=== PATIENT | male | born 1945 | race Caucasian/White ===

== ENCOUNTER → 2017-04-01 | Outpatient (CLI) | payer MEDICARE, BC ==
[~2017-04-01] VITALS: Ht 167.6 cm; Wt 105.0 kg
[~2017-04-01] MED LIST: ASPIRIN E.C. 8181 MG PO; FLOMAX 0.40.4 MG/CAP PO; LOPRESSOR100 M1 PO; MASON NATURAL1200 MG PO; NEURONTIN300 M1 PO; NIACIN500 M5 PO; PRILOSEC 20MG20 MG PO; PRINIVIL20 M1 PO; SERTRALINE HYD100 MG PO; ZOCOR40 M1 PO
[2017-04-01 14:20] VITALS: BP 152/79
== END ==
LOC: AMSURD 13:38
DX: Z01.810 Encounter for preprocedural cardiovascular examination (principal); G91.9 Hydrocephalus, unspecified

== ENCOUNTER → 2017-07-24 | Outpatient (CLI) | payer MEDICARE, BC ==
[2017-04-01 14:20] VITALS: BP 152/79
== END ==
LOC: RAD 09:45
DX: K80.20 Calculus of gallbladder without cholecystitis without obstruction (principal); E66.9 Obesity, unspecified; R73.02 Impaired glucose tolerance (oral); E78.2 Mixed hyperlipidemia; I25.10 Atherosclerotic heart disease of native coronary artery without angina pectoris
CPT/HCPCS: Q9967

== ENCOUNTER → 2017-09-25 | Outpatient (CLI) | payer MEDICARE, BC ==
[2017-04-01 14:20] VITALS: BP 152/79
[2017-09-25 10:08] LABS: HEMOGLOBIN 16.6 g/dL (13.5-18.0); MEAN PLATELET VOLUME 9.5 fl (7.4-10.4); RED BLOOD COUNT 5.97 M/mm3 (4.20-5.60); RED CELL DISTRIBUTION WIDTH 14.7 % (11.5-14.5); WHITE BLOOD COUNT 7.6 K/mm3 (4.8-10.8)
[2017-09-25 10:16] LABS: BUN/CREATININE RATIO 18.7 (6.0-26.0); CALCIUM 9.4 mg/dL (8.4-10.2); POTASSIUM 4.3 mmol/L (3.6-5.0); TOTAL BILIRUBIN 1.1 mg/dL (0.2-1.3); TOTAL PROTEIN 7.1 g/dL (6.3-8.2)
== END ==
LOC: LAB 09:34
PROVIDERS: Family Medicine
DX: I10 Essential (primary) hypertension (principal); E66.9 Obesity, unspecified; F32.9 Major depressive disorder, single episode, unspecified

== ENCOUNTER → 2017-10-15 | Outpatient (CLI) | payer MEDICARE, BC ==
[2017-04-01 14:20] VITALS: BP 152/79
== END ==
LOC: RAD 09:08
DX: N20.0 Calculus of kidney (principal); K83.8 Other specified diseases of biliary tract; Z96.89 Presence of other specified functional implants
CPT/HCPCS: Q9967

== ENCOUNTER → 2017-11-11 | Outpatient (CLI) | payer MEDICARE, BC ==
[2017-04-01 14:20] VITALS: BP 152/79
== END ==
LOC: RAD 11:04
DX: R10.32 Left lower quadrant pain (principal); K57.30 Diverticulosis of large intestine without perforation or abscess without bleeding; K80.20 Calculus of gallbladder without cholecystitis without obstruction; N20.0 Calculus of kidney; Z87.442 Personal history of urinary calculi; M47.816 Spondylosis without myelopathy or radiculopathy, lumbar region

== ENCOUNTER → 2018-02-24 | Outpatient (CLI) | payer MEDICARE, BC ==
[2017-04-01 14:20] VITALS: BP 152/79
== END ==
LOC: LAB 14:54
PROVIDERS: Family Medicine
DX: K46.9 Unspecified abdominal hernia without obstruction or gangrene (principal); K83.8 Other specified diseases of biliary tract; K57.90 Diverticulosis of intestine, part unspecified, without perforation or abscess without bleeding; N28.1 Cyst of kidney, acquired; N20.0 Calculus of kidney; N32.9 Bladder disorder, unspecified; I10 Essential (primary) hypertension; R19.07 Generalized intra-abdominal and pelvic swelling, mass and lump; Z98.2 Presence of cerebrospinal fluid drainage device
CPT/HCPCS: Q9967

== ENCOUNTER → 2018-08-12 | Outpatient (CLI) | payer MEDICARE, BC ==
[2017-04-01 14:20] VITALS: BP 152/79
== END ==
LOC: LAB 15:36
DX: R30.0 Dysuria (principal); N39.0 Urinary tract infection, site not specified; R10.819 Abdominal tenderness, unspecified site; M54.5 Low back pain

== ENCOUNTER → 2018-09-28 | Outpatient (CLI) | payer MEDICARE, BC ==
[~2018-09-28] VITALS: Ht 167.6 cm; Wt 105.0 kg
[2018-09-28 11:11] LABS: EOS # 0.1 (0.04-0.40); EOS % 1.8 % (0.0-4.0); HEMATOCRIT 50.3 % (42.0-52.0); HEMOGLOBIN 16.9 g/dL (13.5-18.0); LYMPH# 1.9 (1.50-4.00); MEAN CELL VOLUME 85 fl (78-100); MEAN CORPUSCULAR HEMOGLOBIN 29 pg (27-31); MEAN CORPUSCULAR HGB CONC 34 g/dL (33-37); MEAN PLATELET VOLUME 9.1 fl (7.4-10.4); MONO # 0.5 (0.20-0.80); NEU # 4.7 (1.40-6.50); PLATELET COUNT 225 K/mm3 (130-400); RED BLOOD COUNT 5.94 M/mm3 (4.20-5.60); RED CELL DISTRIBUTION WIDTH 14.3 % (11.5-14.5); WHITE BLOOD COUNT 7.3 K/mm3 (4.8-10.8)
[2018-09-28 11:26] VITALS: BP 142/85
[2018-09-28 11:54] LABS: ALBUMIN 4.3 g/dL (3.5-5.0); CALCIUM 9.7 mg/dL (8.4-10.2); POTASSIUM 4.2 mmol/L (3.6-5.0); TOTAL BILIRUBIN 1.1 mg/dL (0.2-1.3); TOTAL PROTEIN 6.9 g/dL (6.3-8.2)
== END ==
LOC: LAB 11:00 → AMSURD 11:00
PROVIDERS: Nurse Anesthetist, Certified Registered
DX: Z01.818 Encounter for other preprocedural examination (principal)

== ENCOUNTER → 2019-06-07 | Outpatient (CLI) | payer MEDICARE, BC ==
[2018-09-28 11:26] VITALS: BP 142/85
== END ==
LOC: RAD 10:56
DX: K43.2 Incisional hernia without obstruction or gangrene (principal); N20.0 Calculus of kidney; M43.06 Spondylolysis, lumbar region; K57.90 Diverticulosis of intestine, part unspecified, without perforation or abscess without bleeding; K80.80 Other cholelithiasis without obstruction

== ENCOUNTER → 2019-09-22 | Outpatient (CLI) | payer MEDICARE, BC ==
[2018-09-28 11:26] VITALS: BP 142/85
[2019-09-22 10:02] LABS: HEMATOCRIT 49.4 % (42.0-52.0); HEMOGLOBIN 16.4 g/dL (13.5-18.0); MEAN CELL VOLUME 82 fl (78-100); MEAN CORPUSCULAR HEMOGLOBIN 27 pg (27-31); MEAN CORPUSCULAR HGB CONC 33 g/dL (33-37); MEAN PLATELET VOLUME 8.9 fl (7.4-10.4); PLATELET COUNT 223 K/mm3 (130-400); RED CELL DISTRIBUTION WIDTH 14.2 % (11.5-14.5); WHITE BLOOD COUNT 9.1 K/mm3 (4.8-10.8)
[2019-09-22 10:41] LABS: ALBUMIN 4.1 g/dL (3.4-4.8); POTASSIUM 4.3 mmol/L (3.5-5.1)
[2019-09-22 10:42] LABS: CALCIUM 9.6 mg/dL (8.3-10.5)
[2019-09-22 10:46] LABS: TOTAL BILIRUBIN 0.9 mg/dL (0.2-1.2)
[2019-09-22 11:10] LABS: LYMPHOCYTE 22 % (20-51); MONOCYTE 5 % (3-10); NEUTROPHILS 63 % (42-75)
== END ==
LOC: LAB 09:45
PROVIDERS: Family Medicine
DX: Z00.00 Encounter for general adult medical examination without abnormal findings (principal); Z12.5 Encounter for screening for malignant neoplasm of prostate; E78.5 Hyperlipidemia, unspecified

== ENCOUNTER → 2019-11-09 | Outpatient (CLI) | payer MEDICARE, BC ==
[2018-09-28 11:26] VITALS: BP 142/85
== END ==
LOC: RAD 15:08
DX: M19.012 Primary osteoarthritis, left shoulder (principal); W19.XXXA Unspecified fall, initial encounter

== ENCOUNTER → 2020-05-05 | Outpatient (CLI) | payer MEDICARE, BC ==
[2018-09-28 11:26] VITALS: BP 142/85
== END ==
LOC: RAD 13:45
DX: I87.2 Venous insufficiency (chronic) (peripheral) (principal)

== ENCOUNTER → 2020-05-11 | Outpatient (CLI) | payer MEDICARE, BC ==
[2018-09-28 11:26] VITALS: BP 142/85
[2020-05-11 08:52] LABS: HEMATOCRIT 49.6 % (42.0-52.0); HEMOGLOBIN 16.5 g/dL (13.5-18.0); MEAN CELL VOLUME 85 fl (78-100); MEAN CORPUSCULAR HEMOGLOBIN 28 pg (27-31); MEAN CORPUSCULAR HGB CONC 33 g/dL (33-37); MEAN PLATELET VOLUME 9.3 fl (7.4-10.4); PLATELET COUNT 200 K/mm3 (130-400); RED BLOOD COUNT 5.84 M/mm3 (4.20-5.60); RED CELL DISTRIBUTION WIDTH 14.2 % (11.5-14.5); WHITE BLOOD COUNT 7.7 K/mm3 (4.8-10.8)
[2020-05-11 08:56] LABS: ALBUMIN 4.2 g/dL (3.4-4.8); POTASSIUM 4.1 mmol/L (3.5-5.1)
[2020-05-11 08:57] LABS: CALCIUM 9.2 mg/dL (8.3-10.5)
[2020-05-11 08:59] LABS: TOTAL PROTEIN 7.2 g/dL (6.2-8.1)
[2020-05-11 09:01] LABS: TOTAL BILIRUBIN 1.4 mg/dL (0.2-1.2)
[2020-05-11 09:05] LABS: MAGNESIUM 1.83 mg/dL (1.60-2.60)
[2020-05-11 09:25] LABS: LYMPHOCYTE 17 % (20-51); MONOCYTE 11 % (3-10); NEUTROPHILS 60 % (42-75)
== END ==
LOC: LAB 08:15
DX: R60.9 Edema, unspecified (principal); R06.00 Dyspnea, unspecified

== ENCOUNTER → 2020-06-02 | Outpatient (CLI) | payer MEDICARE, BC ==
[2018-09-28 11:26] VITALS: BP 142/85
== END ==
LOC: RAD 15:28
DX: R06.00 Dyspnea, unspecified (principal); Z95.1 Presence of aortocoronary bypass graft; Z98.2 Presence of cerebrospinal fluid drainage device

== ENCOUNTER → 2020-07-12 | Day surgery (SDC) | payer MEDICARE, BC ==
[2018-09-28 11:26] VITALS: BP 142/85
== END ==
LOC: MSO 12:36
DX: H25.812 Combined forms of age-related cataract, left eye (principal); M19.90 Unspecified osteoarthritis, unspecified site; I11.0 Hypertensive heart disease with heart failure; I50.9 Heart failure, unspecified; E78.00 Pure hypercholesterolemia, unspecified; G43.909 Migraine, unspecified, not intractable, without status migrainosus; G47.33 Obstructive sleep apnea (adult) (pediatric); I25.10 Atherosclerotic heart disease of native coronary artery without angina pectoris; K21.9 Gastro-esophageal reflux disease without esophagitis; F32.9 Major depressive disorder, single episode, unspecified; Z96.651 Presence of right artificial knee joint; Z79.82 Long term (current) use of aspirin; Z79.02 Long term (current) use of antithrombotics/antiplatelets; Z88.5 Allergy status to narcotic agent; Z79.52 Long term (current) use of systemic steroids; Z95.1 Presence of aortocoronary bypass graft
CPT/HCPCS: 00142; J0171; J2250; V2632

== ENCOUNTER → 2020-08-16 | Day surgery (SDC) | payer MEDICARE, BC ==
[2018-09-28 11:26] VITALS: BP 142/85
== END ==
LOC: MSO 07:23
DX: H25.811 Combined forms of age-related cataract, right eye (principal); M19.90 Unspecified osteoarthritis, unspecified site; I11.0 Hypertensive heart disease with heart failure; I50.9 Heart failure, unspecified; G43.909 Migraine, unspecified, not intractable, without status migrainosus; E78.00 Pure hypercholesterolemia, unspecified; I25.10 Atherosclerotic heart disease of native coronary artery without angina pectoris; G47.33 Obstructive sleep apnea (adult) (pediatric); K21.9 Gastro-esophageal reflux disease without esophagitis; Z87.891 Personal history of nicotine dependence; Z96.651 Presence of right artificial knee joint; Z79.82 Long term (current) use of aspirin; Z79.02 Long term (current) use of antithrombotics/antiplatelets; Z88.5 Allergy status to narcotic agent
CPT/HCPCS: 00142; J0171; J2250; V2632

== ENCOUNTER → 2020-09-05 | Outpatient (CLI) | payer MEDICARE, BC ==
[2018-09-28 11:26] VITALS: BP 142/85
== END ==
LOC: RAD 09:14
DX: M47.812 Spondylosis without myelopathy or radiculopathy, cervical region (principal); M48.02 Spinal stenosis, cervical region; G93.0 Cerebral cysts; G31.9 Degenerative disease of nervous system, unspecified; G93.89 Other specified disorders of brain; Z98.890 Other specified postprocedural states; Z98.2 Presence of cerebrospinal fluid drainage device

== ENCOUNTER 2020-09-13 15:24 | Emergency (ER) | payer MEDICARE, BC ==
[~2020-09-13] VITALS: Ht 154.9 cm; Wt 79.5 kg
[2020-09-13 16:08] LABS: BASO # 0.1 (0.02-0.10); HEMATOCRIT 49.3 % (42.0-52.0); HEMOGLOBIN 16.6 g/dL (13.5-18.0); LYMPH# 1.8 (1.50-4.00); MEAN CELL VOLUME 84 fl (78-100); MEAN CORPUSCULAR HEMOGLOBIN 28 pg (27-31); MEAN CORPUSCULAR HGB CONC 34 g/dL (33-37); MONO # 1.1 (0.20-0.80); NEU # 6.6 (1.40-6.50); PLATELET COUNT 227 K/mm3 (130-400); RED BLOOD COUNT 5.89 M/mm3 (4.20-5.60); RED CELL DISTRIBUTION WIDTH 14.1 % (11.5-14.5); WHITE BLOOD COUNT 10.2 K/mm3 (4.8-10.8)
[2020-09-13 16:09] LABS: EOS # 0.7 (0.04-0.40); EOS % 6.8 % (0.0-4.0)
[2020-09-13 16:16] LABS: ALBUMIN 3.9 g/dL (3.4-4.8); POTASSIUM 4.3 mmol/L (3.5-5.1)
[2020-09-13 16:18] LABS: CALCIUM 9.2 mg/dL (8.3-10.5)
[2020-09-13 16:19] LABS: TOTAL PROTEIN 6.9 g/dL (6.2-8.1)
[2020-09-13 16:21] LABS: TOTAL BILIRUBIN 1.1 mg/dL (0.2-1.2)
[2020-09-13 16:30] VITALS: BP 159/77
[2020-09-13 16:33] LABS: URINE WBC 0 /hpf (0-3)
[2020-09-13 16:42] LABS: URINE APPEARANCE CLEAR; URINE BILIRUBIN NEGATIVE (NEGATIVE); URINE BLOOD NEGATIVE (NEGATIVE); URINE COLOR YELLOW; URINE GLUCOSE NEGATIVE (NEGATIVE); URINE KETONE NEGATIVE (NEGATIVE); URINE LEUKOCYTE ESTERASE NEGATIVE (NEGATIVE); URINE NITRATE NEGATIVE (NEGATIVE); URINE PROTEIN(semi-quant) TRACE mg/dL (NEGATIVE); URINE UROBILINOGEN NORMAL (NORMAL)
== END 2020-09-13 18:37 | disposition home or self-care (01) ==
LOC: ED 15:24
PROVIDERS: Physician Assistant
DX: K40.90 Unilateral inguinal hernia, without obstruction or gangrene, not specified as recurrent (principal); I25.10 Atherosclerotic heart disease of native coronary artery without angina pectoris; I25.2 Old myocardial infarction; K21.9 Gastro-esophageal reflux disease without esophagitis; Z95.1 Presence of aortocoronary bypass graft; Z86.79 Personal history of other diseases of the circulatory system; Z88.6 Allergy status to analgesic agent; Z79.02 Long term (current) use of antithrombotics/antiplatelets; Z79.82 Long term (current) use of aspirin; Z79.899 Other long term (current) drug therapy

== ENCOUNTER → 2021-01-12 | Outpatient (CLI) | payer MEDICARE, BC | LOC: RAD 13:55 | DX: M16.11 Unilateral primary osteoarthritis, right hip (principal); R10.31 Right lower quadrant pain ==

== ENCOUNTER → 2021-04-25 | Outpatient (CLI) | payer MEDICARE, BC ==
[2021-04-25 10:04] LABS: POTASSIUM 4.3 mmol/L (3.5-5.1); SODIUM 136 mmol/L (136-145)
[2021-04-25 10:05] LABS: ALBUMIN 4.1 g/dL (3.4-4.8)
[2021-04-25 10:06] LABS: CALCIUM 9.3 mg/dL (8.3-10.5)
[2021-04-25 10:07] LABS: GLUCOSE 107 mg/dL (75-110); TOTAL PROTEIN 7.2 g/dL (6.2-8.1)
[2021-04-25 10:08] LABS: CARBON DIOXIDE 26 mmol/L (23-31)
[2021-04-25 10:09] LABS: TOTAL BILIRUBIN 1.5 mg/dL (0.2-1.2)
[2021-04-25 10:12] LABS: AST-SGOT 16 U/L (5-34)
[2021-04-25 10:14] LABS: MAGNESIUM 1.85 mg/dL (1.60-2.60)
[2021-04-25 10:28] LABS: ALT/SGPT < 6 U/L (0-55)
== END ==
LOC: LAB 09:18
PROVIDERS: Internal Medicine Adult Congenital Heart Disease
DX: I10 Essential (primary) hypertension (principal)

== ENCOUNTER → 2021-07-05 | Outpatient (CLI) | payer MEDICARE, BC | LOC: LAB 11:38 | DX: R35.1 Nocturia (principal) ==

== ENCOUNTER → 2021-08-25 | Outpatient (CLI) | payer MEDICARE, BC | LOC: RAD 14:03 | DX: M19.041 Primary osteoarthritis, right hand (principal); M19.031 Primary osteoarthritis, right wrist; S69.91XA Unspecified injury of right wrist, hand and finger(s), initial encounter ==

== ENCOUNTER 2021-08-28 13:04 | Outpatient (RCR) | payer MEDICARE, BC | END 2021-09-06 17:00 | disposition home or self-care (01) | LOC: PT 13:04 | DX: R26.9 Unspecified abnormalities of gait and mobility (principal) ==

== ENCOUNTER → 2021-08-28 | Outpatient (CLI) | payer MEDICARE, BC | LOC: RAD 13:24 | DX: Z98.2 Presence of cerebrospinal fluid drainage device (principal) ==

== ENCOUNTER 2021-10-29 13:13 | Emergency (ER) | payer MEDICARE, BC ==
[~2021-10-29] VITALS: Ht 167.6 cm; Wt 94.1 kg
[2021-10-29 13:48] LABS: BASO # 0.03 K/mm3 (0.02-0.10); EOS # 0.04 K/mm3 (0.04-0.40); EOS % 0.3 % (0.0-4.0); HEMATOCRIT 49.4 % (42.0-52.0); HEMOGLOBIN 16.6 g/dL (13.5-18.0); LYMPH# 1.19 K/mm3 (1.50-4.00); MEAN CELL VOLUME 83 fl (78-100); MEAN CORPUSCULAR HEMOGLOBIN 28 pg (27-31); MEAN CORPUSCULAR HGB CONC 34 g/dL (33-37); MEAN PLATELET VOLUME 8.7 fl (7.4-10.4); MONO # 0.48 K/mm3 (0.20-0.80); NEU # 10.24 K/mm3 (1.40-6.50); PLATELET COUNT 230 K/mm3 (130-400); RED BLOOD COUNT 5.92 M/mm3 (4.20-5.60); RED CELL DISTRIBUTION WIDTH 13.1 % (11.5-14.5)
[2021-10-29 13:57] LABS: POTASSIUM 4.1 mmol/L (3.5-5.1); SODIUM 133 mmol/L (136-145)
[2021-10-29 13:58] LABS: CALCIUM 9.7 mg/dL (8.3-10.5)
[2021-10-29 13:59] LABS: GLUCOSE 141 mg/dL (75-110); TOTAL PROTEIN 7.3 g/dL (6.2-8.1)
[2021-10-29 14:01] LABS: CARBON DIOXIDE 20 mmol/L (23-31); TOTAL BILIRUBIN 0.9 mg/dL (0.2-1.2)
[2021-10-29 14:05] LABS: AST-SGOT 17 U/L (5-34)
[2021-10-29 14:06] LABS: ALT/SGPT 14 U/L (0-55)
[2021-10-29 14:19] LABS: TROPONIN-I < 0.030 ng/mL (<0.030)
[2021-10-29] MEDS ORDERED: AUGMENTIN 875-1 EAC1 PO (14:50)
[2021-10-29 16:37] LABS: URINE APPEARANCE CLEAR; URINE BILIRUBIN NEGATIVE (NEGATIVE); URINE BLOOD NEGATIVE (NEGATIVE); URINE COLOR YELLOW; URINE GLUCOSE NEGATIVE (NEGATIVE); URINE KETONE NEGATIVE (NEGATIVE); URINE LEUKOCYTE ESTERASE NEGATIVE (NEGATIVE); URINE NITRATE NEGATIVE (NEGATIVE); URINE PROTEIN(semi-quant) TRACE (NEGATIVE); URINE UROBILINOGEN NORMAL (NORMAL); URINE WBC 0-1 /hpf (0-3)
[2021-10-29 17:45] VITALS: BP 177/99
== END 2021-10-29 17:45 | disposition home or self-care (01) ==
LOC: ED 13:13
PROVIDERS: Physician Assistant
DX: J01.80 Other acute sinusitis (principal); B96.89 Other specified bacterial agents as the cause of diseases classified elsewhere; R53.81 Other malaise; F03.90 Unspecified dementia, unspecified severity, without behavioral disturbance, psychotic disturbance, mood disturbance, and anxiety; I25.10 Atherosclerotic heart disease of native coronary artery without angina pectoris; I10 Essential (primary) hypertension; E78.5 Hyperlipidemia, unspecified; Z79.899 Other long term (current) drug therapy; Z79.82 Long term (current) use of aspirin; Z20.822 Contact with and (suspected) exposure to COVID-19; W19.XXXA Unspecified fall, initial encounter; Y92.009 Unspecified place in unspecified non-institutional (private) residence as the place of occurrence of the external cause

== ENCOUNTER 2021-10-31 13:46 | Emergency (ER) | payer MEDICARE, BC ==
[~2021-10-31] VITALS: Ht 167.6 cm; Wt 94.1 kg
[~2021-10-31 13:46] MED LIST changes: +AUGMENTIN 875-1 EAC1 PO
[2021-10-31 15:08] VITALS: BP 121/68
--- NOTE | 2021-11-01 09:33 | NUR ---
Faxed ER notes to [facility] for continued care
== END 2021-10-31 15:08 | disposition home or self-care (01) ==
LOC: ED 13:46
DX: I10 Essential (primary) hypertension (principal); I25.10 Atherosclerotic heart disease of native coronary artery without angina pectoris; E78.5 Hyperlipidemia, unspecified; Z95.1 Presence of aortocoronary bypass graft; Z79.82 Long term (current) use of aspirin; Z79.899 Other long term (current) drug therapy

== ENCOUNTER → 2022-01-30 | Outpatient (CLI) | payer MEDICARE, BC | LOC: RAD 09:44 | DX: M51.36 Other intervertebral disc degeneration, lumbar region (principal); M41.86 Other forms of scoliosis, lumbar region; M48.56XA Collapsed vertebra, not elsewhere classified, lumbar region, initial encounter for fracture ==

== ENCOUNTER 2022-06-05 11:43 | Emergency (ER) | payer MEDICARE, BC ==
[~2022-06-05] VITALS: Ht 172.7 cm; Wt 94.1 kg
[2022-06-05] MEDS ORDERED: LOPRESSOR 550 MG/TAB PO (12:05)
[2022-06-05] MEDS ORDERED: CARBIDOPA/LEVODOPA PO (12:06)
[2022-06-05] MEDS ORDERED: MELOXICAM15 MG PO (12:06)
[2022-06-05] MEDS ORDERED: GEMTESA75 MG PO (12:06)
[2022-06-05] MEDS ORDERED: ATORVASTATIN CA80 MG PO (12:06)
[2022-06-05 12:24] LABS: BASO # 0.03 K/mm3 (0.02-0.10); EOS # 0.02 K/mm3 (0.04-0.40); EOS % 0.2 % (0.0-4.0); HEMATOCRIT 46.9 % (42.0-52.0); HEMOGLOBIN 15.9 g/dL (13.5-18.0); MEAN CELL VOLUME 83 fl (78-100); MEAN CORPUSCULAR HEMOGLOBIN 28 pg (27-31); MEAN CORPUSCULAR HGB CONC 34 g/dL (33-37); MONO # 1.05 K/mm3 (0.20-0.80); NEU # 7.91 K/mm3 (1.40-6.50); PLATELET COUNT 195 K/mm3 (130-400); RED BLOOD COUNT 5.64 M/mm3 (4.20-5.60); RED CELL DISTRIBUTION WIDTH 13.5 % (11.5-14.5); WHITE BLOOD COUNT 10.9 K/mm3 (4.8-10.8)
[2022-06-05 12:34] LABS: ALBUMIN 3.6 g/dL (3.4-4.8); SODIUM 133 mmol/L (136-145)
[2022-06-05 12:36] LABS: GLUCOSE 125 mg/dL (75-110)
[2022-06-05 12:37] LABS: TOTAL PROTEIN 6.3 g/dL (6.2-8.1)
[2022-06-05 12:38] LABS: CARBON DIOXIDE 22 mmol/L (23-31); TOTAL BILIRUBIN 1.9 mg/dL (0.2-1.2)
[2022-06-05 12:42] LABS: AST-SGOT 12 U/L (5-34)
[2022-06-05 12:54] LABS: ALT/SGPT < 6 U/L (0-55)
[2022-06-05 13:20] LABS: URINE APPEARANCE CLOUDY; URINE BILIRUBIN NEGATIVE (NEGATIVE); URINE BLOOD NEGATIVE (NEGATIVE); URINE COLOR DARK YELLOW; URINE GLUCOSE NEGATIVE (NEGATIVE); URINE KETONE NEGATIVE (NEGATIVE); URINE LEUKOCYTE ESTERASE NEGATIVE (NEGATIVE); URINE NITRATE NEGATIVE (NEGATIVE); URINE PROTEIN(semi-quant) 1+ (NEGATIVE); URINE UROBILINOGEN NORMAL (NORMAL)
[2022-06-05 13:21] LABS: URINE MUCUS PRESENT (NOT PRESENT)
[2022-06-05 14:27] VITALS: BP 150/78
== END 2022-06-05 14:15 | disposition home or self-care (01) ==
LOC: ED 11:43
PROVIDERS: Physician Assistant
DX: E80.7 Disorder of bilirubin metabolism, unspecified (principal); F03.90 Unspecified dementia, unspecified severity, without behavioral disturbance, psychotic disturbance, mood disturbance, and anxiety; E66.9 Obesity, unspecified; Z87.891 Personal history of nicotine dependence

== ENCOUNTER 2022-06-14 12:29 | Inpatient (IN) | payer MEDICARE, BC ==
[~2022-06-14] VITALS: Ht 167.6 cm; Wt 91.0 kg
[~2022-06-14 12:29] MED LIST changes: +ATORVASTATIN CA80 MG PO; +CARBIDOPA/LEVODOPA PO; +GEMTESA75 MG PO; +LOPRESSOR 550 MG/TAB PO; +MELOXICAM15 MG PO
[2022-06-14 13:28] LABS: EOS # 0.38 K/mm3 (0.04-0.40); EOS % 4.2 % (0.0-4.0); HEMATOCRIT 49.3 % (42.0-52.0); HEMOGLOBIN 16.6 g/dL (13.5-18.0); LYMPH# 2.21 K/mm3 (1.50-4.00); MEAN CELL VOLUME 83 fl (78-100); MEAN CORPUSCULAR HEMOGLOBIN 28 pg (27-31); MEAN CORPUSCULAR HGB CONC 34 g/dL (33-37); MEAN PLATELET VOLUME 8.7 fl (7.4-10.4); MONO # 0.78 K/mm3 (0.20-0.80); NEU # 5.59 K/mm3 (1.40-6.50); PLATELET COUNT 252 K/mm3 (130-400); RED BLOOD COUNT 5.92 M/mm3 (4.20-5.60); RED CELL DISTRIBUTION WIDTH 13.5 % (11.5-14.5); WHITE BLOOD COUNT 9.1 K/mm3 (4.8-10.8)
[2022-06-14 13:45] LABS: PROTHROMBIN TIME 10.2 SECONDS (9.0-12.0)
[2022-06-14 14:00] VITALS: BP 152/82
[2022-06-14 16:06] LABS: ALBUMIN 3.6 g/dL (3.4-4.8)
[2022-06-14 16:07] LABS: POTASSIUM 4.4 mmol/L (3.5-5.1); SODIUM 134 mmol/L (136-145)
[2022-06-14 16:08] LABS: CALCIUM 9.2 mg/dL (8.3-10.5)
[2022-06-14 16:09] LABS: TOTAL PROTEIN 6.5 g/dL (6.2-8.1)
[2022-06-14 16:10] LABS: CARBON DIOXIDE 22 mmol/L (23-31)
[2022-06-14 16:11] LABS: TOTAL BILIRUBIN 1.3 mg/dL (0.2-1.2)
[2022-06-14 16:14] LABS: AST-SGOT 15 U/L (5-34)
[2022-06-14 16:15] LABS: ALT/SGPT 6 U/L (0-55)
[2022-06-14 16:16] LABS: LIPASE 25 U/L (8-78)
[2022-06-14 16:19] LABS: TROPONIN-I < 0.030 ng/mL (<0.030)
[2022-06-14 16:38] LABS: URINE APPEARANCE CLEAR; URINE BILIRUBIN NEGATIVE (NEGATIVE); URINE BLOOD NEGATIVE (NEGATIVE); URINE COLOR YELLOW; URINE GLUCOSE NEGATIVE (NEGATIVE); URINE KETONE NEGATIVE (NEGATIVE); URINE LEUKOCYTE ESTERASE NEGATIVE (NEGATIVE); URINE MUCUS PRESENT (NOT PRESENT); URINE NITRATE NEGATIVE (NEGATIVE); URINE PROTEIN(semi-quant) TRACE (NEGATIVE); URINE UROBILINOGEN NORMAL (NORMAL); URINE WBC 0-1 /hpf (0-3)
[2022-06-14 17:26] LABS: GLUCOSE 115 mg/dL (75-110)
[2022-06-14] MEDS ORDERED: COZAAR25 M1 PO (17:53)
[2022-06-14 17:57] VITALS: BP 191/93
[2022-06-14] MEDS ORDERED: NIACIN500 M5 PO (17:58)
[2022-06-14] MEDS ORDERED: TOPAMAX50 M1 PO (18:01)
[2022-06-14] MEDS ORDERED: NITROSTAT0.4 M1 SL (18:01)
[2022-06-14 18:26] VITALS: BP 174/76
[2022-06-14 21:35] VITALS: BP 162/75
[2022-06-15 00:49] LABS: HEPATITIS C ANTIBODY Negative (Negative)
[2022-06-15 02:08] VITALS: BP 167/89
[2022-06-15 06:10] VITALS: BP 179/84
[2022-06-15 09:23] VITALS: BP 163/99
[2022-06-15 13:21] VITALS: BP 143/85
[2022-06-15 17:02] VITALS: BP 196/89
[2022-06-15 21:41] VITALS: BP 170/80
[2022-06-16 05:43] VITALS: BP 164/69
[2022-06-16 08:24] LABS: HEMATOCRIT 48.7 % (42.0-52.0); HEMOGLOBIN 16.2 g/dL (13.5-18.0); MEAN PLATELET VOLUME 8.7 fl (7.4-10.4); RED BLOOD COUNT 5.84 M/mm3 (4.20-5.60); RED CELL DISTRIBUTION WIDTH 13.4 % (11.5-14.5); WHITE BLOOD COUNT 7.7 K/mm3 (4.8-10.8)
[2022-06-16 08:37] LABS: TOTAL BILIRUBIN 1.4 mg/dL (0.2-1.2)
[2022-06-16 10:15] VITALS: BP 144/76
[2022-06-16 12:34] LABS: URINE APPEARANCE CLEAR; URINE BILIRUBIN NEGATIVE (NEGATIVE); URINE BLOOD NEGATIVE (NEGATIVE); URINE COLOR YELLOW; URINE GLUCOSE NEGATIVE (NEGATIVE); URINE KETONE NEGATIVE (NEGATIVE); URINE LEUKOCYTE ESTERASE NEGATIVE (NEGATIVE); URINE NITRATE NEGATIVE (NEGATIVE); URINE PROTEIN(semi-quant) NEGATIVE (NEGATIVE); URINE UROBILINOGEN 1 mg/dL (NORMAL); URINE WBC 0-1 /hpf (0-3)
[2022-06-16] MEDS ORDERED: HEALTHYLAX17 GM/Dose PO (14:18)
[2022-06-16 14:21] VITALS: BP 149/80
[2022-06-16] MEDS ORDERED: NEURONTIN300 MG/CAP PO (15:23)
== END 2022-06-16 15:49 | disposition home health service (06) | DRG 948 ==
LOC: MED/SURG 12:29
PROVIDERS: Family Medicine; ADMIT Family Medicine
DX: R41.82 Altered mental status, unspecified (principal); N40.0 Benign prostatic hyperplasia without lower urinary tract symptoms; I25.10 Atherosclerotic heart disease of native coronary artery without angina pectoris; K21.9 Gastro-esophageal reflux disease without esophagitis; I10 Essential (primary) hypertension; M19.90 Unspecified osteoarthritis, unspecified site; G47.33 Obstructive sleep apnea (adult) (pediatric); E80.6 Other disorders of bilirubin metabolism; R00.1 Bradycardia, unspecified; K22.70 Barrett's esophagus without dysplasia; R73.9 Hyperglycemia, unspecified; G62.9 Polyneuropathy, unspecified; E78.5 Hyperlipidemia, unspecified; R26.9 Unspecified abnormalities of gait and mobility; R53.1 Weakness; Z79.82 Long term (current) use of aspirin; Z91.81 History of falling; Z88.5 Allergy status to narcotic agent
CPT/HCPCS: J1650; J7030; Q9967

== ENCOUNTER → 2022-07-03 | Outpatient (CLI) | payer MEDICARE, BC ==
[~2022-07-03] MED LIST changes: +COZAAR25 M1 PO; +HEALTHYLAX17 GM/Dose PO; +NEURONTIN300 MG/CAP PO; +NITROSTAT0.4 M1 SL; +TOPAMAX50 M1 PO
[2022-07-03 16:44] LABS: BASO # 0.05 K/mm3 (0.02-0.10); EOS % 4.3 % (0.0-4.0); HEMATOCRIT 52.1 % (42.0-52.0); HEMOGLOBIN 17.3 g/dL (13.5-18.0); LYMPH# 2.26 K/mm3 (1.50-4.00); MEAN CELL VOLUME 85 fl (78-100); MEAN CORPUSCULAR HEMOGLOBIN 28 pg (27-31); MEAN CORPUSCULAR HGB CONC 33 g/dL (33-37); MONO # 0.91 K/mm3 (0.20-0.80); NEU # 5.63 K/mm3 (1.40-6.50); PLATELET COUNT 225 K/mm3 (130-400); RED BLOOD COUNT 6.14 M/mm3 (4.20-5.60); RED CELL DISTRIBUTION WIDTH 14.4 % (11.5-14.5); WHITE BLOOD COUNT 9.3 K/mm3 (4.8-10.8)
[2022-07-03 16:55] LABS: POTASSIUM 4.2 mmol/L (3.5-5.1)
[2022-07-03 16:57] LABS: CALCIUM 9.4 mg/dL (8.3-10.5)
[2022-07-03 16:58] LABS: TOTAL PROTEIN 7.1 g/dL (6.2-8.1)
== END ==
LOC: LAB 16:29
PROVIDERS: Family Medicine
DX: I25.10 Atherosclerotic heart disease of native coronary artery without angina pectoris (principal); N40.1 Benign prostatic hyperplasia with lower urinary tract symptoms; K21.9 Gastro-esophageal reflux disease without esophagitis; F43.21 Adjustment disorder with depressed mood; L57.0 Actinic keratosis; M15.0 Primary generalized (osteo)arthritis; I10 Essential (primary) hypertension; R41.89 Other symptoms and signs involving cognitive functions and awareness; E78.2 Mixed hyperlipidemia; E66.9 Obesity, unspecified; G47.33 Obstructive sleep apnea (adult) (pediatric); G64 Other disorders of peripheral nervous system; R73.03 Prediabetes

== ENCOUNTER 2022-08-12 08:48 | Emergency (ER) | payer MEDICARE, BC ==
[2022-08-12 09:26] LABS: BASO # 0.01 K/mm3 (0.02-0.10); EOS # 0.35 K/mm3 (0.04-0.40); EOS % 3.9 % (0.0-4.0); HEMATOCRIT 50.2 % (42.0-52.0); LYMPH# 1.46 K/mm3 (1.50-4.00); MEAN CELL VOLUME 83 fl (78-100); MEAN CORPUSCULAR HEMOGLOBIN 28 pg (27-31); MEAN CORPUSCULAR HGB CONC 34 g/dL (33-37); MEAN PLATELET VOLUME 9.5 fl (7.4-10.4); MONO # 1.14 K/mm3 (0.20-0.80); NEU # 6.06 K/mm3 (1.40-6.50); PLATELET COUNT 133 K/mm3 (130-400); RED BLOOD COUNT 6.07 M/mm3 (4.20-5.60); RED CELL DISTRIBUTION WIDTH 15.1 % (11.5-14.5); WHITE BLOOD COUNT 9.1 K/mm3 (4.8-10.8)
[2022-08-12 09:30] LABS: ALBUMIN 3.6 g/dL (3.4-4.8)
[2022-08-12 09:31] LABS: POTASSIUM 3.9 mmol/L (3.5-5.1)
[2022-08-12 09:33] LABS: TOTAL PROTEIN 6.4 g/dL (6.2-8.1)
[2022-08-12 09:35] LABS: TOTAL BILIRUBIN 2.3 mg/dL (0.2-1.2)
[2022-08-12] MEDS ORDERED: LASIX20 M1 PO (09:51)
[2022-08-12 12:34] LABS: URINE APPEARANCE CLEAR; URINE BILIRUBIN NEGATIVE (NEGATIVE); URINE BLOOD 250 ery/uL (NEGATIVE); URINE COLOR DARK YELLOW; URINE GLUCOSE NEGATIVE (NEGATIVE); URINE KETONE NEGATIVE (NEGATIVE); URINE LEUKOCYTE ESTERASE NEGATIVE (NEGATIVE); URINE NITRATE NEGATIVE (NEGATIVE); URINE PROTEIN(semi-quant) TRACE (NEGATIVE); URINE UROBILINOGEN NORMAL (NORMAL)
[2022-08-12 13:48] VITALS: BP 137/71
== END 2022-08-12 13:40 | disposition home or self-care (01) ==
LOC: ED 08:48
PROVIDERS: Nurse Practitioner
DX: M79.662 Pain in left lower leg (principal); E66.9 Obesity, unspecified; Z88.5 Allergy status to narcotic agent; W01.0XXA Fall on same level from slipping, tripping and stumbling without subsequent striking against object, initial encounter

== ENCOUNTER → 2022-08-21 | Outpatient (CLI) | payer MEDICARE, BC ==
[~2022-08-21] MED LIST changes: +ACETAMINOPHEN-H1 TA2 PO; +ELIQUIS5 MG PO; +FISH OIL CONCE1 EACH PO; +LASIX20 M1 PO
[2022-08-21 15:28] LABS: BASO # 0.06 K/mm3 (0.02-0.10); EOS # 0.89 K/mm3 (0.04-0.40); EOS % 8.4 % (0.0-4.0); HEMATOCRIT 48.1 % (42.0-52.0); HEMOGLOBIN 16.3 g/dL (13.5-18.0); LYMPH# 2.08 K/mm3 (1.50-4.00); MEAN CELL VOLUME 82 fl (78-100); MEAN CORPUSCULAR HEMOGLOBIN 28 pg (27-31); MEAN CORPUSCULAR HGB CONC 34 g/dL (33-37); MEAN PLATELET VOLUME 8.7 fl (7.4-10.4); MONO # 0.71 K/mm3 (0.20-0.80); NEU # 6.75 K/mm3 (1.40-6.50); PLATELET COUNT 237 K/mm3 (130-400); RED BLOOD COUNT 5.84 M/mm3 (4.20-5.60); RED CELL DISTRIBUTION WIDTH 13.6 % (11.5-14.5); WHITE BLOOD COUNT 10.5 K/mm3 (4.8-10.8)
[2022-08-21 15:52] LABS: ALBUMIN 3.8 g/dL (3.4-4.8); POTASSIUM 4.1 mmol/L (3.5-5.1); SODIUM 137 mmol/L (136-145)
[2022-08-21 15:53] LABS: CALCIUM 9.4 mg/dL (8.3-10.5)
[2022-08-21 15:54] LABS: GLUCOSE 123 mg/dL (75-110); TOTAL PROTEIN 6.7 g/dL (6.2-8.1)
[2022-08-21 15:55] LABS: CARBON DIOXIDE 22 mmol/L (23-31)
[2022-08-21 16:00] LABS: AST-SGOT 13 U/L (5-34)
[2022-08-21 16:04] LABS: ALT/SGPT < 6 U/L (0-55)
[2022-08-21 16:19] LABS: D-DIMER 1.47 mg/L FEU (0.15-0.50)
== END ==
LOC: LAB 14:55
PROVIDERS: Nurse Practitioner
DX: M25.552 Pain in left hip (principal); W19.XXXD Unspecified fall, subsequent encounter

== ENCOUNTER → 2023-01-22 | Outpatient (CLI) | payer MEDICARE, BC, MEDICAID | LOC: RAD 13:59 | DX: M16.0 Bilateral primary osteoarthritis of hip (principal); M47.816 Spondylosis without myelopathy or radiculopathy, lumbar region ==

== ENCOUNTER → 2024-04-14 | Outpatient (CLI) | payer MEDICARE, BC, MEDICAID ==
[2024-04-14 14:06] LABS: BASO # 0.02 K/mm3 (0.02-0.10); EOS # 0.38 K/mm3 (0.04-0.40); EOS % 4.9 % (0.0-4.0); HEMATOCRIT 48.9 % (42.0-52.0); HEMOGLOBIN 16.2 g/dL (13.5-18.0); LYMPH# 2.04 K/mm3 (1.50-4.00); MEAN CELL VOLUME 85 fl (78-100); MEAN CORPUSCULAR HEMOGLOBIN 28 pg (27-31); MEAN CORPUSCULAR HGB CONC 33 g/dL (33-37); MEAN PLATELET VOLUME 9.1 fl (7.4-10.4); MONO # 0.66 K/mm3 (0.20-0.80); PLATELET COUNT 210 K/mm3 (130-400); RED BLOOD COUNT 5.75 M/mm3 (4.20-5.60); WHITE BLOOD COUNT 7.8 K/mm3 (4.8-10.8)
[2024-04-14 14:17] LABS: ALBUMIN 3.9 g/dL (3.4-4.8); SODIUM 138 mmol/L (136-145)
[2024-04-14 14:18] LABS: CALCIUM 9.2 mg/dL (8.3-10.5)
[2024-04-14 14:19] LABS: TOTAL PROTEIN 6.9 g/dL (6.2-8.1)
[2024-04-14 14:20] LABS: CARBON DIOXIDE 23 mmol/L (23-31); GLUCOSE 129 mg/dL (75-110)
[2024-04-14 14:25] LABS: AST-SGOT 13 U/L (5-34)
[2024-04-14 14:35] LABS: ALT/SGPT < 6 U/L (0-55)
== END ==
LOC: LAB 13:51
PROVIDERS: Nurse Practitioner
DX: Z00.00 Encounter for general adult medical examination without abnormal findings (principal); R32 Unspecified urinary incontinence

== ENCOUNTER → 2024-06-16 | Outpatient (CLI) | payer MEDICARE, BC, MEDICAID ==
[2024-06-16 09:29] LABS: BASO # 0.02 K/mm3 (0.02-0.10); EOS # 0.26 K/mm3 (0.04-0.40); EOS % 3.6 % (0.0-4.0); HEMATOCRIT 47.4 % (42.0-52.0); HEMOGLOBIN 15.6 g/dL (13.5-18.0); LYMPH# 1.44 K/mm3 (1.50-4.00); MEAN CELL VOLUME 85 fl (78-100); MEAN CORPUSCULAR HEMOGLOBIN 28 pg (27-31); MEAN CORPUSCULAR HGB CONC 33 g/dL (33-37); MEAN PLATELET VOLUME 9.1 fl (7.4-10.4); MONO # 0.51 K/mm3 (0.20-0.80); NEU # 5.02 K/mm3 (1.40-6.50); PLATELET COUNT 184 K/mm3 (130-400); RED BLOOD COUNT 5.57 M/mm3 (4.20-5.60); RED CELL DISTRIBUTION WIDTH 14.1 % (11.5-14.5); WHITE BLOOD COUNT 7.3 K/mm3 (4.8-10.8)
[2024-06-16 09:38] LABS: ALBUMIN 3.9 g/dL (3.4-4.8); SODIUM 139 mmol/L (136-145)
[2024-06-16 09:39] LABS: CALCIUM 9.2 mg/dL (8.3-10.5)
[2024-06-16 09:40] LABS: GLUCOSE 117 mg/dL (75-110); TOTAL PROTEIN 6.6 g/dL (6.2-8.1)
[2024-06-16 09:41] LABS: CARBON DIOXIDE 25 mmol/L (23-31)
[2024-06-16 09:42] LABS: TOTAL BILIRUBIN 1.2 mg/dL (0.2-1.2)
[2024-06-16 09:46] LABS: AST-SGOT 12 U/L (5-34)
[2024-06-16 09:52] LABS: ALT/SGPT < 6 U/L (0-55)
[2024-06-16 10:13] LABS: D-DIMER 0.46 mg/L FEU (0.15-0.50)
== END ==
LOC: LAB 09:07
PROVIDERS: Family Medicine
DX: I10 Essential (primary) hypertension (principal); R73.03 Prediabetes; R22.42 Localized swelling, mass and lump, left lower limb

== ENCOUNTER → 2024-12-15 | Outpatient (CLI) | payer MEDICARE, BC, MEDICAID | LOC: RAD 09:42 | DX: M17.12 Unilateral primary osteoarthritis, left knee (principal) ==